=== PATIENT | male | born 1950 | race Caucasian/White ===

== ENCOUNTER 2016-12-01 14:59 | Emergency (ER) | payer OTHER ==
[2016-12-01 15:15] VITALS: BP 126/69; PULSE 74; TEMP 98.4; BMI 22.8
--- NOTE | 2016-12-01 15:40 | PDOC ---
History of Present Illness - General History Source: Patient Exam Limitations: No Limitations - History of Present Illness Initial Comments: 12/01/16 16:13 The patient is a 66 year old male with no significant past medical history, who presents to the ED with a blister on left anterior lilly. Patient states he had a similar blister on his right lilly. It went away with applying alcohol on the area. Patient denies fever, chills, nausea, vomiting. <Jackson Hoyt - Last Filed: 12/01/16 16:13> - General History Source: Patient Exam Limitations: No Limitations <Miguel Le - Last Filed: 12/01/16 16:56> - General Chief Complaint: Abscess Boil Stated Complaint: LEFT LEG BOIL Time Seen by Provider: 12/01/16 15:01 Past History <Jackosn Hoyt - Last Filed: 12/01/16 16:13> - Past Medical History Other medical history: PT DENIES - Surgical History Appendectomy: Yes - Psycho/Social/Smoking Cessation Hx Suicidal Ideation: No Smoking History: Never smoked Information on smoking cessation initiated: No Hx Alcohol Use: No Drug/Substance Use Hx: No Substance Use Type: None <Miguel Le - Last Filed: 12/01/16 16:56> - Past Medical History Allergies/Adverse Reactions: Allergies Allergy/AdvReac Type Severity Reaction Status Date / Time diphenhydramine Allergy Intermediate Verified 12/01/16 15:01 Penicillins Allergy Intermediate Verified 12/01/16 15:01 Home Medications: Ambulatory Orders NK [No Known Home Medication] 12/01/16 Review of Systems - Review of Systems Able to Perform ROS?: Yes Comments:: 12/01/16 16:14 GENERAL/CONSTITUTIONAL: No fever or chills. No weakness. HEAD, EYES, EARS, NOSE AND THROAT: No change in vision. No ear pain or discharge. No sore throat. CARDIOVASCULAR: No chest pain or shortness of breath. RESPIRATORY: No cough, wheezing, or hemoptysis. GASTROINTESTINAL: No nausea, vomiting, diarrhea or constipation. GENITOURINARY: No dysuria, frequency, or change in urination. MUSCULOSKELETAL: No joint or muscle swelling or pain. No neck or back pain. SKIN: Blister on left anterior lilly. NEUROLOGIC: No headache, vertigo, loss of consciousness, or change in strength/ sensation. ENDOCRINE: No increased thirst. No abnormal weight change. HEMATOLOGIC/LYMPHATIC: No anemia, easy bleeding, or history of blood clots. ALLERGIC/IMMUNOLOGIC: No hives or skin allergy. <Jackson Hoyt - Last Filed: 12/01/16 16:13> *Physical Exam - Vital Signs Last Vital Signs Temp Pulse Resp BP Pulse Ox 98.4 F 74 18 126/69 99 12/01/16 15:00 12/01/16 15:00 12/01/16 15:00 12/01/16 15:00 12/01/16 15:00 - Physical Exam Comments: 12/01/16 16:14 GENERAL: Awake, alert, and fully oriented, in no acute distress HEAD: No signs of trauma EYES: PERRLA, EOMI, sclera anicteric, conjunctiva clear ENT: Auricles normal inspection, hearing grossly normal, nares patent, oropharynx clear without exudates. Moist mucosa NECK: Normal ROM, supple, no lymphadenopathy, JVD, or masses LUNGS: Breath sounds equal, clear to auscultation bilaterally. No wheezes, and no crackles HEART: Regular rate and rhythm, normal S1 and S2, no murmurs, rubs or gallops ABDOMEN: Soft, nontender, normoactive bowel sounds. No guarding, no rebound. No masses EXTREMITIES: Normal range of motion, no edema. No clubbing or cyanosis. No cords, erythema, or tenderness NEUROLOGICAL: Cranial nerves II through XII grossly intact. Normal speech, normal gait SKIN: 1cm x1 cm blister on left anterior lilly. Warm, Dry, normal turgor. <Jackson Hoyt - Last Filed: 12/01/16 16:13> - Vital Signs Last Vital Signs Temp Pulse Resp BP Pulse Ox 98.4 F 74 18 126/69 99 12/01/16 15:00 12/01/16 15:00 12/01/16 15:00 12/01/16 15:00 12/01/16 15:00 <Miguel Le - Last Filed: 12/01/16 16:56> Medical Decision Making - Medical Decision Making 12/01/16 16:13 A portion of this note was documented by scribe services under my direction. I have reviewed the details of the note, within reason, and agree with the documentation with the following case summary and management plan written by me. Patient treated in the ED. Nursing notes are reviewed and incorporated into the medical decision-making. Vital signs reviewed. Peripheral IV access obtained by the nurse, laboratory studies are drawn and sent, reviewed and interpreted by myself. Vital Signs Temp Pulse Resp BP Pulse Ox 98.4 F 74 18 126/69 99 12/01/16 15:00 12/01/16 15:00 12/01/16 15:00 12/01/16 15:00 12/01/16 15:00 66-year-old male with no past medical history presents with blister on left anterior lilly. Denies trauma or injury. Patient reported that he had a similar one on his right lower extremity one day ago that resolved on its own. He does not take any medications. Denies any trauma. The blister appears intact and small. At this time, I encouraged supportive care. I instructed the patient that if he notices more spontaneous blistering, he needs to consider disease processes such as bullous pemphigoid and that he should follow-up with dermatology. Patient was understood agrees with plan. I discussed the physical exam findings, ancillary test results and final diagnoses with the patient. I answered all of the patient's questions. The patient was satisfied with the care received and felt comfortable with the discharge plan and treatment plan. The patient will call their primary care physician within 24 hours to arrange follow-up and will return to the Emergency Department with any new, persistant or worsening symptoms. <Miguel Le - Last Filed: 12/01/16 16:56> *DC/Admit/Observation/Transfer - Attestations Scribe Attestion: 12/01/16 16:14 Documentation prepared by Jackson oHyt, acting as director of graduate medical education for Miguel Le MD, MD. <Jackson Hoyt - Last Filed: 12/01/16 16:13> <Miguel Le - Last Filed: 12/01/16 16:56> Diagnosis at time of Disposition: Blister - Discharge Dispostion Disposition: HOME Condition at time of disposition: Stable - Referrals Referrals: Hanna Lyn MD [Staff Physician] - - Patient Instructions Printed Discharge Instructions: DI for Blisters Additional Instructions: Please continue to observe your blisters. If you start to notice more blisters, please follow up with a ticket seller. You may need to be considered for Bullous Pemphigoid (though this is an uncommon disease). Follow up with your primary care physician.
== END 2016-12-01 15:43 | disposition home or self-care (01) ==
LOC: FER 14:59
DX: S80.822A Blister (nonthermal), left lower leg, initial encounter (principal)
CPT/HCPCS: 99281-25